=== PATIENT | female | born 1980 | race Caucasian/White ===

== ENCOUNTER 2017-11-15 16:29 | Emergency (ER) | payer MEDICAID ==
[~2017-11-15] VITALS: Ht 170.2 cm; Wt 56.3 kg
[~2017-11-15 16:29] MED LIST: CARI350T PO; CYCL-1 PO; DICL50TA8 PO; HYDR-569 PO; SUMA100T PO
[2017-11-15] MEDS ORDERED: dexamethasone sod phosphate 10mg/ml inj IM STA (17:17)
[2017-11-15] MEDS ORDERED: orphenadrine citrate 60mg/2ml inj. IM ONE ×2 (17:20→17:40)
[2017-11-15] MEDS ORDERED: HYDROcodone/acetaminophen 5mg/325mg tablet PO ONE (17:20)
[2017-11-15] MEDS ORDERED: ketorolac trometh inj. 60 MG/2 ML VIAL IM ONE (17:20)
[2017-11-15] MEDS ORDERED: NAPR-56 PO (17:27)
[2017-11-15] MEDS ORDERED: CYCL-1 PO (17:27)
[2017-11-15 18:25] VITALS: BP 118/87
== END 2017-11-15 17:55 | disposition home or self-care (01) ==
LOC: ER 16:29
DX: S39.012A Strain of muscle, fascia and tendon of lower back, initial encounter (principal); S29.019A Strain of muscle and tendon of unspecified wall of thorax, initial encounter; G89.29 Other chronic pain; Z88.8 Allergy status to other drugs, medicaments and biological substances; F12.10 Cannabis abuse, uncomplicated
CPT/HCPCS: 96372; 99284; J1100; J1885; J2360

== ENCOUNTER 2018-12-12 11:06 | Emergency (ER) | payer MEDICAID ==
[~2018-12-12] VITALS: Ht 172.7 cm; Wt 57.7 kg
[~2018-12-12 11:06] MED LIST changes: +HYDR-4383 PO; -HYDR-569 PO
[2018-12-12] MEDS ORDERED: ketorolac trometh inj. 60 MG/2 ML VIAL IM ONE (12:05)
[2018-12-12] MEDS ORDERED: HYDROcodone/acetaminophen 5mg/325mg tablet PO ONE (12:05)
[2018-12-12] MEDS ORDERED: HYDR-3965 PO (13:10)
[2018-12-12] MEDS ORDERED: CYCL-1 PO (13:10)
[2018-12-12 14:05] VITALS: BP 117/64
== END 2018-12-12 14:11 | disposition home or self-care (01) ==
LOC: ER 11:07
DX: S13.4XXA Sprain of ligaments of cervical spine, initial encounter (principal); S29.012A Strain of muscle and tendon of back wall of thorax, initial encounter; S09.90XA Unspecified injury of head, initial encounter; F12.10 Cannabis abuse, uncomplicated; G89.29 Other chronic pain; G43.909 Migraine, unspecified, not intractable, without status migrainosus; W55.12XA Struck by horse, initial encounter; Y93.89 Activity, other specified; Y92.89 Other specified places as the place of occurrence of the external cause; Y99.8 Other external cause status
CPT/HCPCS: 70450; 72125; 72128; 73030; 96372; 99284; J1885

== ENCOUNTER 2022-05-05 17:46 | Emergency (ER) | payer MEDICAID ==
[~2022-05-05] VITALS: Ht 170.2 cm; Wt 68.2 kg
[2022-05-05] MEDS ORDERED: TETanus/Pertussis (Acell)/Diphther VAC/PF (Tdap-Adult) 0.5ml syringe IMVAC ONE (20:30)
[2022-05-05] MEDS ORDERED: amox tr/potassium clavulanate 875/125mg TAB PO ONE (20:35)
[2022-05-05] MEDS ORDERED: AMOX-117 PO (20:37)
== END 2022-05-05 21:08 | disposition home or self-care (01) ==
LOC: ER 17:47
DX: S51.852A Open bite of left forearm, initial encounter (principal); G89.29 Other chronic pain; M54.9 Dorsalgia, unspecified; G43.909 Migraine, unspecified, not intractable, without status migrainosus; F12.10 Cannabis abuse, uncomplicated; Z88.8 Allergy status to other drugs, medicaments and biological substances; Z79.899 Other long term (current) drug therapy; Z79.2 Long term (current) use of antibiotics; W54.0XXA Bitten by dog, initial encounter; Y93.89 Activity, other specified; Y92.89 Other specified places as the place of occurrence of the external cause; Y99.8 Other external cause status
CPT/HCPCS: 90471; 90715; 99283; J7030; A6258; A6449